=== PATIENT | female | born 1955 | race Caucasian/White ===

== ENCOUNTER 2019-08-27 06:01 | Inpatient (IN) | payer OTHER ==
[~2019-08-27] VITALS: Ht 162.6 cm; Wt 79.4 kg
[2019-08-27 06:28] VITALS: BP 140/74
[2019-08-27] MEDS ORDERED: EVISTA60 MG PO (10:04)
[2019-08-27] MEDS ORDERED: LOSARTAN POTASS50 M1 PO (10:04)
[2019-08-27] MEDS ORDERED: OMEPRAZOLE40 M1 PO (10:05)
[2019-08-27] MEDS ORDERED: CALCITRATE950 MG (10:06)
[2019-08-27] MEDS ORDERED: LEVOXYL0.1 MG PO (10:06)
[2019-08-27] MEDS ORDERED: GOOD SENSE ASPI81 M3 PO (10:06)
--- NOTE | 2019-08-27 11:28 | NUR ---
PATIENT ARRIVED TO THE UNIT AT THIS TIME, WILL ASSESS AND CONTINUE TO MONITOR.
[2019-08-27 11:36] VITALS: BP 137/88
[2019-08-27 13:26] VITALS: BP 142/88
[2019-08-27 16:33] VITALS: BP 125/71
--- NOTE | 2019-08-27 19:10 | NUR ---
REPORT GIVEN TO GUM REMOVER NURSE AT THE BEDSIDE, CARE ENDORSED
--- NOTE | 2019-08-27 19:30 | NUR ---
RECEIVED PT SITTING UP IN BED, NO ACUTE DISRRESS OBSERVED, DENIES PAIN OR DISCOMFORT AT THIS TIME. 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 POLAR ICE IN PLACE, LLE ELEVATED, PT IS UP WITH P.T. AA/OX4, ABLE TO MAKE NEEDS KNOWN, SPEECH CLEAR AND APPROPRIATE. MED-SURG, NO TELE, NO CP. PULSES PALPABLE AND EQUAL THROUGHOUT, SWELLING TO LLE. BREATHING ON RA, EVEN AND UNLABORED, NO SOB OR DYSPNEA, ABD ROUND AND SOFT WITH ACTIVE BOWEL SOUNDS, DENIES N/V/D, POST OP PASSING GAS AND BM X5 EARLIER TODAY. WHITMORE CATH IN PLACE, DRAINING YELLOW URINE TO GRAVITY. IV TO RAC IN PLACE, DRY, PATENT, INTACT, AND INFUSING IVF WELL, NO S&S PHLEBITIS OR INFILTRATION NOTED. COMFORT AND SAFETY MEASURES IN PLACE, ALL NEEDS ASSESSED AND ATTENDED TO. CALL LIGHT WITHIN REACH. WILL CONTINUE TO MONITOR
--- NOTE | 2019-08-27 19:30 | NUR ---
RECEIVED PT SITTING UP IN BED, NO ACUTE DISRRESS OBSERVED, DENIES PAIN OR DISCOMFORT AT THIS TIME. 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 POLAR ICE IN PLACE, LLE ELEVATED, PT IS UP WITH P.T. AA/OX4, ABLE TO MAKE NEEDS KNOWN, SPEECH CLEAR AND APPROPRIATE. MED-SURG, NO TELE, NO CP. PULSES PALPABLE AND EQUAL THROUGHOUT, +3 EDEMA TO LLE, +2 TO RLE. BREATHING ON RA, EVEN AND UNLABORED, NO SOB OR DYSPNEA, ABD ROUND AND SOFT WITH ACTIVE BOWEL SOUNDS, DENIES N/V/D, POST OP PASSING GAS AND BM X5 EARLIER TODAY. WHITMORE CATH IN PLACE, DRAINING YELLOW URINE TO GRAVITY, PT REQUESTING TO KEEP IN FOR THE NIGHT. PT EDUCATED FOR NEED TO REMOVE TO AVOID ASSOCIATED UTI, PT VERBALIZED UNDERSTANDING. IV TO RAC IN PLACE, DRY, PATENT, INTACT, AND INFUSING IVF WELL, NO S&S PHLEBITIS OR INFILTRATION NOTED. COMFORT AND SAFETY MEASURES IN PLACE, ALL NEEDS ASSESSED AND ATTENDED TO. CALL LIGHT WITHIN REACH. WILL CONTINUE TO MONITOR
[2019-08-27 20:36] VITALS: BP 115/71
--- NOTE | 2019-08-27 21:00 | NUR ---
SPOKE WITH PHARMACIST, IVETT, TO FOLLOW UP REGARDING TYLENOL PO AND TORADOL SCHEDULED, NON PRN DOSING. IVETT STATES PER POLICY, MAX DOSE FOR TYLENOL IN 24 HOUR PERIOD IS 3250 MG BUT LITERATURE SHOWS MAX DOSE CAN BE HIGH 4 GRAMS IN 24 HOURS FOR PT'S BEING TREATED WITH OSTEOARTHRITIS. SCHEDULED TYLENOL AND TORADOL TO BE GIVEN ONLY IF PT IS AWAKE AND/OR COMPLAINING OF PAIN.
--- NOTE | 2019-08-28 05:00 | NUR ---
PT AGREED AT THIS TIME TO HAVE WHITMORE CATH REMOVED. WHITMORE CATH REMOVED WITH CATH INTACT, PT TOLERATED WELL. PT EDUCATED FOR NEED AND IMPORTANCE TO VOID AFTER WHITMORE BEING REMOVED, PT AGREED AND VERBALIZED UNDERSTANDING.
--- NOTE | 2019-08-28 05:21 | NUR ---
NO SIGNIFICANT CHANGES TO REPORT, PT COMPLIED WITH NURSING CARE THROUGHOUT THE SHIFT WITH NO ACUTE EVENTS OVERNIGHT. PT LAYING IN BED, NO ACUTE DISTRESS OBSERVED, BREATHING EVEN AND UNLABORED. COMFORT AND SAFETY MEASURES MAINTAINED. ALL NEEDS ASSESSED AND ATTENDED TO. CALL LIGHT WITHIN REACH. WILL CONTINUE TO MONITOR AND ENDORSE CARE TO DAY SHIFT NURSE
[2019-08-28 06:07] VITALS: BP 147/76
[2019-08-28 06:20] LABS: PLATELET COUNT 208 x10^3mcL (130-400); RED CELL DISTRIBUTION WIDTH 13.8 % (11.5-14.5)
[2019-08-28 06:31] LABS: BASOPHIL % 0 % (0-2)
[2019-08-28 06:56] LABS: CALCIUM 8.6 mg/dL (8.5-10.1); CARBON DIOXIDE 26.2 mmol/L (21-32); CHLORIDE SERUM 105 mmol/L (98-107); CREATININE SERUM 0.6 mg/dL (0.6-1.0); GFR1 > 60 mL/min; GLUCOSE SERUM 147 mg/dL (74-106); POTASSIUM SERUM 4.1 mmol/L (3.5-5.1); SODIUM SERUM 141 mmol/L (136-145)
--- NOTE | 2019-08-28 07:30 | NUR ---
SEEN PATIENT, MEDSURG, NOT IN DISTRESS, NO PAIN AT THIS TIME, LIMITED ROM. L LEG SURGICAL WOUND, DRESSING DRY AND INTACT. RLE EDEMA +2, LLE EDEMA +2, SCD IN PLACE. POLAR ICE IN PLACE ON L LEG. IV INTACT AND INFUSING WELL, RAC NO REDNESS OR INFILTRATION. CALL LIGHT WITHIN REACH. BED AT LOWEST POSITION.
--- NOTE | 2019-08-28 09:30 | NUR ---
SEEN PATIENT WITH C/O PAIN IN L LEG, ACHING, 5/10. TYLENOL AND TORADOL GIVEN. LLE AND RLE +2. NO OTHER COMPLAINTS OF SOB, PALPITATIONS , CHEST PAIN. WILL CONTINUE TO REASSESS PAIN
[2019-08-28 09:50] VITALS: BP 154/81
--- NOTE | 2019-08-28 11:30 | NUR ---
SEEN PATIENT AMBULATING WITH PT LISA. TOLERATED PT . COMPLAINTS OF PAIN FROM SURGICAL WOUND 02/09. TOLERABLE. PAIN MEDICATIONS NOT DUE AT THIS TIME.
--- NOTE | 2019-08-28 12:30 | NUR ---
SEEN PATIENT AOX4, NO COMPLAINTS OF PAIN. REFUSED TYLENOL. CALL LIGHT WITHIN REACH. BED AT LOWEST POPSITION
[2019-08-28 13:12] VITALS: BP 154/81
--- NOTE | 2019-08-28 14:19 | NUR ---
TRIED TO REACH DR IGLESIAS TWICE REGARDING PATIENT'S PAIN MANAGEMENT AND DRESSING PLAN (POLAR ICE) MANAGEMENT.
--- NOTE | 2019-08-28 14:20 | NUR ---
PATIENT IS ON PHYSICAL THERAPY WITH PT AFTER TAKING TYLENOL MEDICATION. PS 03/12. WILL CONTINUE TO MONITOR STATUS OF PAIN
--- NOTE | 2019-08-29 08:22 | NUR ---
PHYSICAL THERAPY DAILY NOTES CO-SIGN All documentation done by the Mental Health Professional for 08/28/19 has been reviewed. I agree with the documentation. Reviewed/Co-Signed by: Alexa Matthew PT Documentation Done by:SHAHIDA GONGORA PTA
== END 2019-08-28 18:32 | disposition home or self-care (01) | DRG 470 ==
LOC: MU 06:01 → DU 07:30 → MU 11:23
PROVIDERS: ADMIT Orthopaedic Surgery
PROC: 0SRD0J9 Replacement of Left Knee Joint with Synthetic Substitute, Cemented, Open Approach (ICD-10-PCS; principal; 2019-08-27 07:30)
DX: M17.12 Unilateral primary osteoarthritis, left knee (principal)
CPT/HCPCS: 97110-GP; 97116-GP; 97530-GP; C1713; C1776; G0378; J0690; J1100; J1170; J1885; J2250; J2270; J2704; J3010; J3490; J7030; J7120